=== PATIENT | female | born 1965 | race Two or more races ===

== ENCOUNTER 2018-10-25 12:01 | Emergency (ER) | payer MEDICAID ==
[~2018-10-25] VITALS: Ht 152.4 cm; Wt 90.7 kg
[2018-10-25 12:09] VITALS: BP 176/89
[2018-10-25] MEDS ORDERED: cefTRIAXone SOD 1,000 MG VL ONE (12:19)
[2018-10-25] MEDS ORDERED: methylPREDNISolone SOD SUCC 125 MG/2 ML VL ONE (12:19)
== END 2018-10-25 13:53 | disposition home or self-care (01) ==
LOC: ER 12:01
DX: M72.2 Plantar fascial fibromatosis (principal); J98.01 Acute bronchospasm
CPT/HCPCS: 71046; 73630; J0696